=== PATIENT | male | born 1970 ===

== ENCOUNTER → 2021-05-06 | Day surgery (SDC) | payer BC ==
[~2021-05-06] VITALS: Ht 172.7 cm; Wt 100.0 kg
[~2021-05-06] MED LIST: IV RINGERS,LACTATED 1000ML 1,000 ML IV SCH; LIDOCAINE 2% PF 5 ML VIAL. ONE; PROPOFOL 10 MG/ML (20ML) VIAL. IV ONE
[2021-05-06 06:50] VITALS: BP 153/85
[2021-05-06 08:15] VITALS: BP 156/93
--- NOTE | 2021-05-06 22:30 | CONS ---
DATE OF CONSULTATION: 05/06/2021 REFERRING PHYSICIAN: Jane oRgel MD REASON FOR CONSULTATION: Colorectal screening. HISTORY OF PRESENT ILLNESS: A 51-year-old male whose past medical history is noncontributory, is seen for screening colon. Bowel habits are regular without diarrhea or constipation. There has been no melena and/or hematochezia. Weight and appetite are stable. FAMILY HISTORY: Positive for colon polyps and ulcerative colitis in his mother, otherwise without additional complaints. PAST MEDICAL HISTORY: Noncontributory. ALLERGIES: POSSIBLY KEFLEX. MEDICATIONS: None. SOCIAL HISTORY: He is a social drinker, nonsmoker. PAST SURGICAL HISTORY: Noncontributory. REVIEW OF SYSTEMS: HEENT: There are no decreased hearing or visual acuity issues. CARDIAC: No history of hypertension, palpitations or syncope. PULMONARY: No shortness of breath, productive cough or asthma. RENAL: No dysuria, frequency or hematuria. HEMATOLOGIC: No bleeding, bruising or coagulopathy. ENDOCRINE: No diabetes or heat or cold intolerance. DERMATOLOGIC: No skin rashes or pruritus. GASTROINTESTINAL: See history of present illness. ORTHOPEDIC: No osteoarthrosis, arthralgias or myalgias. NEUROLOGIC: No stroke, migraine or neuropathy. PSYCHIATRIC: No mood swings, depression or insomnia. PHYSICAL EXAMINATION: GENERAL: Reveals a well-nourished, well-developed male who is alert, cooperative, in no acute distress. VITAL SIGNS: Temperature 97.8, pulse ____, respiratory rate 18. LUNGS: Clear. CARDIOVASCULAR: Reveals S1, S2, without S3, S4 or appreciable murmur. ABDOMEN: Reveals soft abdomen, normal bowel sounds, no appreciable hepatosplenomegaly. EXTREMITIES: Reveals no cyanosis, clubbing or edema. IMPRESSION: Colorectal screening. Risks and benefits of procedure ____ perforation were discussed. The patient is willing to proceed at this time. I would like to thank Dr. Rogel for allowing us to consult and participate in this patient's care. JOAQUÍN/NNAMDI/DEVIN DR: Theresa TID: [id number] CC: JANE ROGEL MD
--- NOTE | 2021-05-07 15:09 | PATHOLOGY ---
[facility] Accession Number: [id number] . 01 Material submitted: . PART A: cecum - CECAL POLYPS PART B: rectum - RECTAL POLYPS . 01 Clinical history: . SCREENING COLONOSCOPY . 02 Diagnosis: A. Colon biopsy, cecal polyps: - Tubular adenoma. - Prominent mucosal fold. . B. Colorectal biopsies, rectal polyps: - Tubular adenoma (1). - Hyperplastic polyp (1). . 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 02 Comment: Sections of the cecal biopsy reveal 2 segments of tubular adenoma, and 2 segments of colonic mucosa consistent with prominent mucosal fold. There is no high-grade dysplasia or evidence of malignancy. . Sections of the rectal biopsy reveal a tubular adenoma and a hyperplastic polyp. There is no high-grade dysplasia or evidence of malignancy. . (JPM:marcy; 05/07/2021) . 02 Electronically signed: . Lj Stanton MD, Pathologist NPI- [id number] . 01 Gross description: . A. The specimen is received in formalin, labeled "Cerda, Robe, cecal polyps". It consists of multiple sullivan irregular soft tissue fragments ranging from 0.1-0.4 cm in greatest dimensions. The specimen is entirely submitted between sponges in A1. . B. The specimen is received in formalin, labeled "Cerda, Robe, rectal polyps". It consists of 2 sullivan polypoid soft tissue fragments each measuring 0.4 cm. The specimen is entirely submitted between sponges in B1. (MRF; 05/06/2021) MFE/MFE 05/07/2021 1012 Local . 02 Pathologist provided ICD-10: D12.0, D12.8, K62.1 . 02 CPT . 277801, 176646 Specimen Comment: A courtesy copy of this report has been sent to [phone] Specimen Comment: Report sent to / DR HOGUE Performed at: [address], [place] [id number] MD Néstor Gonzalez MD Phone: [phone] Performed at: 02 [facility] [address] [place], [place] [id number] MD Lj Stanton MD Phone: [phone]
== END ==
LOC: ENDOS 06:18
PROVIDERS: ATTEND Internal Medicine Gastroenterology
DX: Z12.11 Encounter for screening for malignant neoplasm of colon (principal); D12.8 Benign neoplasm of rectum; D12.0 Benign neoplasm of cecum; K57.30 Diverticulosis of large intestine without perforation or abscess without bleeding; K64.0 First degree hemorrhoids; Z20.822 Contact with and (suspected) exposure to COVID-19; Z98.890 Other specified postprocedural states
CPT/HCPCS: 45380; 45385; 87426; 88305; J2704